=== PATIENT | male | born 1980 | race Caucasian/White ===

== ENCOUNTER 2019-02-24 19:31 | Emergency (ER) | payer SELFPAY ==
[~2019-02-24] VITALS: Ht 167.6 cm; Wt 72.6 kg
[2019-02-24 19:39] VITALS: Ht 167.6 cm; Wt 72.6 kg
[2019-02-24 21:28] VITALS: BP 140/80
== END 2019-02-24 21:28 | disposition home or self-care (01) ==
LOC: ED 19:31
DX: L03.011 Cellulitis of right finger (principal)
CPT/HCPCS: J1885